=== PATIENT | male | born 1970 | race Caucasian/White ===

== ENCOUNTER 2016-11-09 21:50 | Inpatient (IN) | payer MEDICARE, OTHER ==
[~2016-11-09] VITALS: Ht 185.4 cm; Wt 104.3 kg
[~2016-11-09 21:50] MED LIST: ASPIRIN81 MG PO; COUMADIN5 MG PO; FIORICET TAB1 EA PO; FISH OIL 1,0001 EACH PO; HYDROXYZINE PAM25 MG PO; KEPPRA750 MG PO; LIPITOR TAB 2020 MG PO; NEURONTIN600 MG PO; NORCO 7.5-3251 EACH PO; SENOKOT-S TABL1 EACH PO; VOLTAREN EC 5050 MG PO; XARELTO15 MG PO; XARELTO20 MG PO
[2016-11-10 02:11] LABS: HEMOGLOBIN 15.3 gm/dl (14.0-17.5); RED BLOOD COUNT 4.99 M/UL (4.20-5.50); WHITE BLOOD COUNT 9.7 K/UL (4.5-11.0)
[2016-11-10 02:30] LABS: BUN/CREATININE RATIO 20 (0-10)
[2016-11-10] MEDS ORDERED: REMERON15 MG PO (11:03)
[2016-11-10] MEDS ORDERED: FISH OIL 1,0001 EAC1 PO (11:04)
[2016-11-10] MEDS ORDERED: LIPITOR TAB 2020 MG PO (11:04)
[2016-11-10] MEDS ORDERED: CLARITIN 10MG T10 MG PO (11:06)
[2016-11-10] MEDS ORDERED: ZANAFLEX 4 MG TA4 MG PO (11:07)
[2016-11-10] MEDS ORDERED: FIORICET TAB1 EA PO (11:07)
[2016-11-11 04:17] LABS: HEMOGLOBIN 14.5 gm/dl (14.0-17.5); RED BLOOD COUNT 4.82 M/UL (4.20-5.50)
[2016-11-11 04:20] LABS: WHITE BLOOD COUNT 7.1 K/UL (4.5-11.0)
[2016-11-11 04:48] LABS: BUN/CREATININE RATIO 23 (0-10)
== END 2016-11-12 13:42 | disposition home or self-care (01) | DRG 176 ==
LOC: ER1 21:50 → MED SURG 4 11-10 08:32 → ZEROF 11-10 08:32 → MED SURG 4 11-10 18:40
PROVIDERS: Physician Assistant; ADMIT Internal Medicine Infectious Disease
DX: I26.99 Other pulmonary embolism without acute cor pulmonale (principal); J98.11 Atelectasis; I82.509 Chronic embolism and thrombosis of unspecified deep veins of unspecified lower extremity; D68.51 Activated protein C resistance; F79 Unspecified intellectual disabilities; I49.5 Sick sinus syndrome; F17.210 Nicotine dependence, cigarettes, uncomplicated; M79.604 Pain in right leg; M62.838 Other muscle spasm; I48.0 Paroxysmal atrial fibrillation; G40.909 Epilepsy, unspecified, not intractable, without status epilepticus; I25.10 Atherosclerotic heart disease of native coronary artery without angina pectoris; R07.89 Other chest pain; I10 Essential (primary) hypertension; E78.5 Hyperlipidemia, unspecified; Z91.14 Patient's other noncompliance with medication regimen; Z95.0 Presence of cardiac pacemaker; Z86.79 Personal history of other diseases of the circulatory system; Z79.01 Long term (current) use of anticoagulants; Z88.5 Allergy status to narcotic agent; Z88.6 Allergy status to analgesic agent; Z79.82 Long term (current) use of aspirin; Z79.1 Long term (current) use of non-steroidal anti-inflammatories (NSAID); Z79.02 Long term (current) use of antithrombotics/antiplatelets; Z79.899 Other long term (current) drug therapy
CPT/HCPCS: 36415; 71010; 73564; 80048; 80053; 81001; 82550; 82553; 83874; 84484; 85025; 85610; 85730; 93005; 96372; 99285; G0378; J1650; J7050; Q0177; Q9963

== ENCOUNTER 2016-11-18 19:24 | Emergency (ER) | payer MEDICARE, OTHER ==
[~2016-11-18 19:24] MED LIST changes: +CLARITIN 10MG T10 MG PO; +FISH OIL 1,0001 EAC1 PO; +REMERON15 MG PO; +ZANAFLEX 4 MG TA4 MG PO
[2016-11-18 20:30] LABS: RED BLOOD COUNT 4.54 M/UL (4.20-5.50); WHITE BLOOD COUNT 8.4 K/UL (4.5-11.0)
[2016-11-18 20:59] LABS: BUN/CREATININE RATIO 24 (0-10)
== END 2016-11-18 22:15 | disposition home or self-care (01) ==
LOC: ER1 19:24
PROVIDERS: Specialist/Technologist Athletic Trainer
DX: R07.2 Precordial pain (principal); I10 Essential (primary) hypertension; F17.200 Nicotine dependence, unspecified, uncomplicated; Z79.01 Long term (current) use of anticoagulants; Z79.899 Other long term (current) drug therapy; Z88.8 Allergy status to other drugs, medicaments and biological substances
CPT/HCPCS: 36415; 80053; 82550; 82553; 84484; 85025; 85610; 85730; 93005; 99285

== ENCOUNTER 2016-11-22 21:04 | Observation (INO) | payer MEDICARE, OTHER ==
[~2016-11-22] VITALS: Ht 185.4 cm; Wt 107.3 kg
[2016-11-22 22:53] LABS: HEMOGLOBIN 14.5 gm/dl (14.0-17.5); RED BLOOD COUNT 4.75 M/UL (4.20-5.50); WHITE BLOOD COUNT 8.4 K/UL (4.5-11.0)
[2016-11-22 23:12] LABS: BUN/CREATININE RATIO 16 (0-10)
[2016-11-24] MEDS ORDERED: IMDUR ER TAB 3030 MG PO (12:32)
[2016-11-24] MEDS ORDERED: LOVENOX SY120 MG/0.8 SQ (12:33)
== END 2016-11-24 14:30 | disposition home or self-care (01) ==
LOC: ER1 21:04 → M/S 11-23 00:55 → ZEROF 11-23 00:55 → M/S 11-23 01:59
PROVIDERS: Student in an Organized Health Care Education/Training Program; ADMIT Internal Medicine
DX: R07.89 Other chest pain (principal); I26.99 Other pulmonary embolism without acute cor pulmonale; I82.409 Acute embolism and thrombosis of unspecified deep veins of unspecified lower extremity; I48.0 Paroxysmal atrial fibrillation; I49.5 Sick sinus syndrome; I10 Essential (primary) hypertension; E78.5 Hyperlipidemia, unspecified; G89.29 Other chronic pain; F17.210 Nicotine dependence, cigarettes, uncomplicated; Z91.19 Patient's noncompliance with other medical treatment and regimen; Z82.49 Family history of ischemic heart disease and other diseases of the circulatory system; Z88.8 Allergy status to other drugs, medicaments and biological substances; Z79.01 Long term (current) use of anticoagulants; Z79.82 Long term (current) use of aspirin; Z79.899 Other long term (current) drug therapy; Z90.89 Acquired absence of other organs; Z95.0 Presence of cardiac pacemaker; Z98.890 Other specified postprocedural states
CPT/HCPCS: 36415; 71010; 78452; 80053; 82550; 82553; 83874; 84484; 85025; 85610; 85730; 93005; 93017; 96372; 96374; 96376; 99285; A9502; G0378; J1650; J2270; J2785; Q0177

== ENCOUNTER 2016-11-28 15:42 | Emergency (ER) | payer MEDICARE, OTHER ==
[~2016-11-28 15:42] MED LIST changes: +IMDUR ER TAB 3030 MG PO; +LOVENOX SY120 MG/0.8 SQ
[2016-11-28 16:58] LABS: HEMOGLOBIN 14.6 gm/dl (14.0-17.5); RED BLOOD COUNT 4.82 M/UL (4.20-5.50); WHITE BLOOD COUNT 7.7 K/UL (4.5-11.0)
[2016-11-28 17:13] LABS: BUN/CREATININE RATIO 16 (0-10)
== END 2016-11-29 04:09 | disposition home or self-care (01) ==
LOC: ER1 15:42
PROVIDERS: Emergency Medicine
DX: R07.9 Chest pain, unspecified (principal); I10 Essential (primary) hypertension; I82.401 Acute embolism and thrombosis of unspecified deep veins of right lower extremity; Z86.711 Personal history of pulmonary embolism; Z95.0 Presence of cardiac pacemaker; Z79.01 Long term (current) use of anticoagulants
CPT/HCPCS: 36415; 71020; 80053; 82550; 82553; 83690; 83874; 83880; 84484; 85025; 85379; 85610; 85730; 93005; 93970; 99285; J7050; Q9963

== ENCOUNTER 2016-11-29 04:17 | Emergency (ER) | payer MEDICARE | END 2016-11-29 08:30 | disposition home or self-care (01) | LOC: ER1 04:17 | DX: R07.9 Chest pain, unspecified (principal); I25.10 Atherosclerotic heart disease of native coronary artery without angina pectoris; I10 Essential (primary) hypertension; F17.210 Nicotine dependence, cigarettes, uncomplicated; Z86.711 Personal history of pulmonary embolism; Z86.718 Personal history of other venous thrombosis and embolism; Z88.6 Allergy status to analgesic agent; Z95.0 Presence of cardiac pacemaker | CPT/HCPCS: 36415; 71020; 80053; 82550; 82553; 83690; 83874; 83880; 84484; 85025; 85379; 85610; 85730; 93005; 93970; 99285; J7050; Q9963 ==

== ENCOUNTER 2016-12-06 08:02 | Emergency (ER) | payer MEDICARE, OTHER ==
[2016-12-06 09:13] LABS: HEMOGLOBIN 12.9 gm/dl (14.0-17.5); RED BLOOD COUNT 4.27 M/UL (4.20-5.50)
[2016-12-06 09:33] LABS: BUN/CREATININE RATIO 10 (0-10)
== END 2016-12-06 10:30 | disposition home or self-care (01) ==
LOC: ER1 08:02
PROVIDERS: Emergency Medicine
DX: R07.89 Other chest pain (principal); I10 Essential (primary) hypertension; E78.5 Hyperlipidemia, unspecified; I51.9 Heart disease, unspecified; F17.210 Nicotine dependence, cigarettes, uncomplicated; Z86.711 Personal history of pulmonary embolism; Z79.82 Long term (current) use of aspirin; Z79.01 Long term (current) use of anticoagulants; Z79.899 Other long term (current) drug therapy; Z88.6 Allergy status to analgesic agent
CPT/HCPCS: 36415; 71010; 80053; 82550; 82553; 83874; 84484; 85025; 85610; 85730; 93005; 94664; 96372; 99285; J2930; Q0162

== ENCOUNTER 2016-12-14 10:46 | Emergency (ER) | payer MEDICARE, OTHER ==
[2016-12-14 11:52] LABS: HEMOGLOBIN 15.9 gm/dl (14.0-17.5); RED BLOOD COUNT 5.23 M/UL (4.20-5.50); WHITE BLOOD COUNT 6.9 K/UL (4.5-11.0)
[2016-12-14 12:11] LABS: BUN/CREATININE RATIO 13 (0-10)
[2016-12-15] MEDS ORDERED: ZANAFLEX4 MG PO (10:51)
== END 2016-12-14 13:28 | disposition home or self-care (01) ==
LOC: ER1 10:46
PROVIDERS: Student in an Organized Health Care Education/Training Program
DX: Z53.21 Procedure and treatment not carried out due to patient leaving prior to being seen by health care provider (principal)
CPT/HCPCS: 36415; 71010; 80053; 82550; 82553; 83874; 84484; 85025; 93005; 99285

== ENCOUNTER 2016-12-14 13:31 | Emergency (ER) | payer MEDICARE ==
[2016-12-15] MEDS ORDERED: ZANAFLEX4 MG PO (10:51)
== END 2016-12-14 17:19 | disposition home or self-care (01) ==
LOC: ER1 13:31
DX: R79.1 Abnormal coagulation profile (principal); M79.604 Pain in right leg; Z86.711 Personal history of pulmonary embolism; Z86.718 Personal history of other venous thrombosis and embolism; Z79.01 Long term (current) use of anticoagulants
CPT/HCPCS: 36415; 85610; 85730; 99283

== ENCOUNTER 2016-12-14 20:37 | Observation (INO) | payer MEDICARE, OTHER ==
[~2016-12-14] VITALS: Ht 185.4 cm; Wt 113.4 kg
[2016-12-15 00:37] LABS: HEMOGLOBIN 15.7 gm/dl (14.0-17.5); RED BLOOD COUNT 5.13 M/UL (4.20-5.50)
[2016-12-15 00:43] LABS: WHITE BLOOD COUNT 8.9 K/UL (4.5-11.0)
[2016-12-15] MEDS ORDERED: ZANAFLEX4 MG PO (10:51)
== END 2016-12-15 11:56 | disposition home or self-care (01) ==
LOC: ER1 20:37 → ZEROF 12-15 02:00
PROVIDERS: Emergency Medicine; ADMIT Hospitalist
DX: R79.1 Abnormal coagulation profile (principal); M79.604 Pain in right leg; I48.0 Paroxysmal atrial fibrillation; F99 Mental disorder, not otherwise specified; I49.5 Sick sinus syndrome; G89.29 Other chronic pain; I25.10 Atherosclerotic heart disease of native coronary artery without angina pectoris; I10 Essential (primary) hypertension; F17.210 Nicotine dependence, cigarettes, uncomplicated; Z95.0 Presence of cardiac pacemaker; Z86.69 Personal history of other diseases of the nervous system and sense organs; Z86.711 Personal history of pulmonary embolism; Z76.5 Malingerer [conscious simulation]; Z86.718 Personal history of other venous thrombosis and embolism; Z79.899 Other long term (current) drug therapy; Z90.89 Acquired absence of other organs; Z91.14 Patient's other noncompliance with medication regimen; Z82.49 Family history of ischemic heart disease and other diseases of the circulatory system
CPT/HCPCS: 36415; 85025; 85610; 85730; 94640; 94664; 96374; 99283; 99285; G0378; J2270; J3430

== ENCOUNTER 2016-12-22 01:11 | Emergency (ER) | payer MEDICARE, OTHER ==
[~2016-12-22 01:11] MED LIST changes: +ZANAFLEX4 MG PO
[2016-12-22 01:46] LABS: HEMOGLOBIN 15.2 gm/dl (14.0-17.5); RED BLOOD COUNT 4.95 M/UL (4.20-5.50); WHITE BLOOD COUNT 8.3 K/UL (4.5-11.0)
[2016-12-22 02:10] LABS: BUN/CREATININE RATIO 13 (0-10)
== END 2016-12-22 08:39 | disposition home or self-care (01) ==
LOC: ER1 01:11
PROVIDERS: Physician Assistant
DX: R07.89 Other chest pain (principal); I82.5Z1 Chronic embolism and thrombosis of unspecified deep veins of right distal lower extremity; I25.10 Atherosclerotic heart disease of native coronary artery without angina pectoris; I10 Essential (primary) hypertension; F17.210 Nicotine dependence, cigarettes, uncomplicated
CPT/HCPCS: 36415; 71010; 80053; 82550; 82553; 83874; 84484; 85025; 93005; 99285

== ENCOUNTER 2016-12-31 13:59 | Emergency (ER) | payer MEDICARE, OTHER ==
[2016-12-31 15:19] LABS: HEMOGLOBIN 14.7 gm/dl (14.0-17.5); RED BLOOD COUNT 4.79 M/UL (4.20-5.50); WHITE BLOOD COUNT 8.1 K/UL (4.5-11.0)
[2016-12-31 15:55] LABS: BUN/CREATININE RATIO 11 (0-10)
== END 2016-12-31 19:17 | disposition home or self-care (01) ==
LOC: ER1 13:59
PROVIDERS: Physician Assistant
DX: I82.511 Chronic embolism and thrombosis of right femoral vein (principal); I82.531 Chronic embolism and thrombosis of right popliteal vein; G89.29 Other chronic pain; F17.210 Nicotine dependence, cigarettes, uncomplicated; I25.10 Atherosclerotic heart disease of native coronary artery without angina pectoris; R79.1 Abnormal coagulation profile; Z91.14 Patient's other noncompliance with medication regimen; Z76.5 Malingerer [conscious simulation]; Z95.0 Presence of cardiac pacemaker; Z98.890 Other specified postprocedural states; Z79.01 Long term (current) use of anticoagulants
CPT/HCPCS: 36415; 80053; 85025; 85379; 85610; 85730; 93971; 99284

== ENCOUNTER 2017-01-12 22:02 | Emergency (ER) | payer MEDICARE, OTHER ==
[2017-01-12 22:35] LABS: RED BLOOD COUNT 4.85 M/UL (4.20-5.50)
[2017-01-12 23:02] LABS: BUN/CREATININE RATIO 11 (0-10)
== END 2017-01-13 11:20 | disposition home or self-care (01) ==
LOC: ER1 22:02
PROVIDERS: Emergency Medicine
DX: R07.9 Chest pain, unspecified (principal); R79.1 Abnormal coagulation profile; R06.02 Shortness of breath; I25.10 Atherosclerotic heart disease of native coronary artery without angina pectoris; F17.200 Nicotine dependence, unspecified, uncomplicated; Z86.711 Personal history of pulmonary embolism; Z86.718 Personal history of other venous thrombosis and embolism; Z88.6 Allergy status to analgesic agent
CPT/HCPCS: 36415; 71020; 80053; 82550; 82553; 83874; 84484; 85025; 85379; 85610; 85730; 93005; 96372; 99285; J1650

== ENCOUNTER 2017-01-18 22:17 | Emergency (ER) | payer MEDICARE, OTHER | END 2017-01-19 04:45 | disposition left against medical advice (07) | LOC: ER1 22:17 | DX: Z53.21 Procedure and treatment not carried out due to patient leaving prior to being seen by health care provider (principal) | CPT/HCPCS: 93005 ==

== ENCOUNTER 2017-02-10 17:26 | Emergency (ER) | payer MEDICARE, OTHER ==
[2017-02-10 20:23] LABS: HEMOGLOBIN 15.2 gm/dl (14.0-17.5); RED BLOOD COUNT 5.02 M/UL (4.20-5.50)
[2017-02-10 21:06] LABS: BUN/CREATININE RATIO 8 (0-10)
== END 2017-02-10 23:30 | disposition home or self-care (01) ==
LOC: ER1 17:26
PROVIDERS: Emergency Medicine
DX: R07.89 Other chest pain (principal); Z95.0 Presence of cardiac pacemaker; Z88.6 Allergy status to analgesic agent
CPT/HCPCS: 36415; 71020; 80053; 82550; 82553; 83874; 83880; 84484; 85025; 85379; 85610; 85730; 93005; 99285

== ENCOUNTER 2017-02-25 21:28 | Emergency (ER) | payer MEDICARE, OTHER ==
[2017-02-26 01:07] LABS: HEMOGLOBIN 15.5 gm/dl (14.0-17.5); RED BLOOD COUNT 5.11 M/UL (4.20-5.50); WHITE BLOOD COUNT 14.1 K/UL (4.5-11.0)
[2017-02-26 01:25] LABS: BUN/CREATININE RATIO 12 (0-10)
== END 2017-02-26 01:47 | disposition home or self-care (01) ==
LOC: ER1 21:28
PROVIDERS: Emergency Medicine
DX: M79.604 Pain in right leg (principal); D72.829 Elevated white blood cell count, unspecified; Z86.718 Personal history of other venous thrombosis and embolism; Z86.711 Personal history of pulmonary embolism
CPT/HCPCS: 36415; 80053; 82550; 82553; 83874; 84484; 85025; 85379; 85610; 85730; 99283

== ENCOUNTER 2017-03-03 15:35 | Emergency (ER) | payer MEDICARE, OTHER | END 2017-03-03 18:00 | disposition home or self-care (01) | LOC: ER1 15:35 | DX: I82.511 Chronic embolism and thrombosis of right femoral vein (principal); I82.531 Chronic embolism and thrombosis of right popliteal vein; M79.604 Pain in right leg; Z79.01 Long term (current) use of anticoagulants; Z79.899 Other long term (current) drug therapy; Z88.8 Allergy status to other drugs, medicaments and biological substances | CPT/HCPCS: 73564; 73590; 93971; 99283 ==

== ENCOUNTER 2017-03-07 21:27 | Emergency (ER) | payer MEDICARE, OTHER ==
[2017-03-07 23:52] LABS: HEMOGLOBIN 15.7 gm/dl (14.0-17.5); RED BLOOD COUNT 5.15 M/UL (4.20-5.50); WHITE BLOOD COUNT 7.2 K/UL (4.5-11.0)
[2017-03-08 00:09] LABS: BUN/CREATININE RATIO 11 (0-10)
== END 2017-03-08 00:45 | disposition home or self-care (01) ==
LOC: ER1 21:27
PROVIDERS: Specialist/Technologist Athletic Trainer
DX: R07.2 Precordial pain (principal); D69.6 Thrombocytopenia, unspecified; Z88.6 Allergy status to analgesic agent
CPT/HCPCS: 36415; 36600; 71010; 80053; 82550; 82553; 82803; 83874; 84484; 85025; 93005; 96372; 99285; J1885

== ENCOUNTER 2017-03-09 21:44 | Emergency (ER) | payer MEDICARE, OTHER ==
[2017-03-09 22:52] LABS: HEMOGLOBIN 16.4 gm/dl (14.0-17.5); RED BLOOD COUNT 5.51 M/UL (4.20-5.50); WHITE BLOOD COUNT 8.5 K/UL (4.5-11.0)
[2017-03-09 23:12] LABS: BUN/CREATININE RATIO 12 (0-10)
== END 2017-03-10 06:25 | disposition home or self-care (01) ==
LOC: ER1 21:44
PROVIDERS: Family Medicine
DX: R07.89 Other chest pain (principal); S80.01XA Contusion of right knee, initial encounter; Z88.8 Allergy status to other drugs, medicaments and biological substances; Z88.5 Allergy status to narcotic agent; F17.200 Nicotine dependence, unspecified, uncomplicated; W19.XXXA Unspecified fall, initial encounter
CPT/HCPCS: 36415; 71010; 73564; 80053; 82550; 82553; 83874; 84484; 85025; 93005; 99285

== ENCOUNTER 2020-12-19 02:53 | Emergency (ER) | payer MEDICARE, OTHER ==
[2020-12-19 03:14] LABS: HEMOGLOBIN 13.3 gm/dl (14.0-17.5); RED BLOOD COUNT 4.53 M/UL (4.20-5.50); WHITE BLOOD COUNT 10.2 K/UL (4.5-11.0)
[2020-12-19 03:31] LABS: BUN/CREATININE RATIO 15 (0-10)
[2020-12-19] MEDS ORDERED: MIRALAX 119 GR119 GM GT (07:13)
== END 2020-12-19 08:00 | disposition home or self-care (01) ==
LOC: ER1 02:53
PROVIDERS: Family Medicine
DX: R07.9 Chest pain, unspecified (principal); I11.9 Hypertensive heart disease without heart failure; E11.9 Type 2 diabetes mellitus without complications; F17.210 Nicotine dependence, cigarettes, uncomplicated; Z88.6 Allergy status to analgesic agent; J44.9 Chronic obstructive pulmonary disease, unspecified
CPT/HCPCS: 71045; 80053; 80307; 81001; 82550; 82553; 82962; 83690; 83874; 84484; 85025; 93005; 99285

== ENCOUNTER 2021-06-23 15:45 | Inpatient (IN) | payer MEDICARE, OTHER ==
[~2021-06-23] VITALS: Ht 182.9 cm; Wt 149.7 kg
[~2021-06-23 15:45] MED LIST changes: +MIRALAX 119 GR119 GM GT
[2021-06-23 18:01] LABS: HEMOGLOBIN 13.5 gm/dl (14.0-17.5); RED BLOOD COUNT 4.7 M/UL (4.20-5.50); WHITE BLOOD COUNT 7.6 K/UL (4.5-11.0)
[2021-06-23 18:54] LABS: BUN/CREATININE RATIO 10 (0-10)
[2021-06-24] MEDS ORDERED: FLUOXETINE HCL40 MG PO (11:59)
[2021-06-24] MEDS ORDERED: LEVOTHYROXINE75 MC1 PO (12:00)
[2021-06-24] MEDS ORDERED: PROTONIX 40 MG40 M1 PO (12:00)
[2021-06-24] MEDS ORDERED: PROVENTIL HFA6.7 GM INH (12:03)
[2021-06-24] MEDS ORDERED: ANORO ELLIPTA1 EACH INH (12:04)
[2021-06-24] MEDS ORDERED: INDOCIN 50 MG C50 MG PO (12:06)
[2021-06-25 07:02] LABS: HEMOGLOBIN 12.7 gm/dl (14.0-17.5); RED BLOOD COUNT 4.56 M/UL (4.20-5.50)
[2021-06-25 07:42] LABS: BUN/CREATININE RATIO 12 (0-10)
[2021-06-26] MEDS ORDERED: HYDROXYZINE PAM25 MG PO (11:44)
[2021-06-26] MEDS ORDERED: INDOCIN 50 MG C50 MG PO ×2 (11:44→14:35)
[2021-06-26] MEDS ORDERED: PROTONIX 40 MG40 M1 PO (11:44)
[2021-06-26] MEDS ORDERED: FISH OIL 1,0001 EAC1 PO (11:44)
[2021-06-26] MEDS ORDERED: ANORO ELLIPTA1 EACH INH (11:44)
[2021-06-26] MEDS ORDERED: REMERON15 MG PO (11:44)
[2021-06-26] MEDS ORDERED: FLUOXETINE HCL40 MG PO (11:44)
[2021-06-26] MEDS ORDERED: ISOSORBIDE MONO30 MG PO (11:44)
[2021-06-26] MEDS ORDERED: LEVOTHYROXINE75 MC1 PO (11:44)
[2021-06-26] MEDS ORDERED: ZANAFLEX4 MG PO (11:44)
[2021-06-26] MEDS ORDERED: LIPITOR TAB 2020 MG PO (11:44)
[2021-06-26] MEDS ORDERED: MIRALAX 119 GR119 GM GT (11:44)
[2021-06-26] MEDS ORDERED: KEPPRA750 MG PO (11:44)
[2021-06-26] MEDS ORDERED: PROVENTIL HFA6.7 GM INH (11:44)
[2021-06-26] MEDS ORDERED: JANTOVEN10 MG PO (11:47)
[2021-06-26] MEDS ORDERED: LOVENOX SY120 MG/0.8 SQ (11:47)
[2021-06-26 12:54] LABS: BUN/CREATININE RATIO 10 (0-10)
[2021-06-26] MEDS ORDERED: METOPROLOL TART25 MG PO (14:19)
[2021-06-26] MEDS ORDERED: NEURONTIN600 MG PO (14:35)
[2021-06-26] MEDS ORDERED: GABAPENTIN300 MG PO (14:39)
== END 2021-06-26 17:22 | disposition home or self-care (01) | DRG 683 ==
LOC: ER1 15:45 → M/S 22:00 → CDU 22:00 → M/S 22:30
PROVIDERS: Emergency Medicine; Physician Assistant; ADMIT Internal Medicine
PROC: B24BZZ4 Ultrasonography of Heart with Aorta, Transesophageal (ICD-10-PCS; principal; 2021-06-25)
DX: N17.9 Acute kidney failure, unspecified (principal); G40.802 Other epilepsy, not intractable, without status epilepticus; I82.4Z1 Acute embolism and thrombosis of unspecified deep veins of right distal lower extremity; Z68.41 Body mass index [BMI] 40.0-44.9, adult; Z20.822 Contact with and (suspected) exposure to COVID-19; R53.81 Other malaise; G89.29 Other chronic pain; I49.5 Sick sinus syndrome; R19.7 Diarrhea, unspecified; E66.9 Obesity, unspecified; Z96.651 Presence of right artificial knee joint; I07.1 Rheumatic tricuspid insufficiency; I10 Essential (primary) hypertension; R47.9 Unspecified speech disturbances; K21.9 Gastro-esophageal reflux disease without esophagitis; G31.84 Mild cognitive impairment of uncertain or unknown etiology; F17.210 Nicotine dependence, cigarettes, uncomplicated; E11.9 Type 2 diabetes mellitus without complications; Z95.0 Presence of cardiac pacemaker; Z83.3 Family history of diabetes mellitus; Z79.811 Long term (current) use of aromatase inhibitors; Z91.14 Patient's other noncompliance with medication regimen
CPT/HCPCS: ECHO; 36415; 71045; 78452; 80048; 80053; 82550; 82553; 82570; 82962; 83036; 83874; 84156; 84484; 84550; 85025; 85610; 85652; 86140; 87086; 89050; 93005; 93017; 93306; 94640; 94664; 94760; 99285; A9502; J1650; J2270; J2785; Q0177; U0002

== ENCOUNTER 2021-07-03 12:55 | Observation (INO) | payer MEDICARE, OTHER ==
[~2021-07-03] VITALS: Ht 182.9 cm; Wt 127.0 kg
[~2021-07-03 12:55] MED LIST changes: +ANORO ELLIPTA1 EACH INH; +FLUOXETINE HCL40 MG PO; +GABAPENTIN300 MG PO; +INDOCIN 50 MG C50 MG PO; +ISOSORBIDE MONO30 MG PO; +JANTOVEN10 MG PO; +LEVOTHYROXINE75 MC1 PO; +METOPROLOL TART25 MG PO; +PROTONIX 40 MG40 M1 PO; +PROVENTIL HFA6.7 GM INH
[2021-07-03 13:25] LABS: HEMOGLOBIN 12.8 gm/dl (14.0-17.5); RED BLOOD COUNT 4.51 M/UL (4.20-5.50); WHITE BLOOD COUNT 6.9 K/UL (4.5-11.0)
[2021-07-03 13:52] LABS: BUN/CREATININE RATIO 12 (0-10)
[2021-07-03] MEDS ORDERED: PROAIR DIGIHAL90 MCG INH (17:09)
[2021-07-03] MEDS ORDERED: ATORVASTATIN CA40 MG PO (17:10)
[2021-07-03] MEDS ORDERED: FLUOXETINE HCL40 MG PO (17:11)
[2021-07-03] MEDS ORDERED: GABAPENTIN800 MG PO (17:12)
[2021-07-03] MEDS ORDERED: INDOMETHACIN50 MG PO (17:13)
[2021-07-03] MEDS ORDERED: KEPPRA1000 MG PO (17:14)
[2021-07-03] MEDS ORDERED: REMERON 15 MG T15 MG PO (17:16)
[2021-07-03] MEDS ORDERED: ANORO ELLIPTA1 EACH INH (17:17)
[2021-07-03] MEDS ORDERED: TIZANIDINE HCL4 MG PO (17:17)
[2021-07-03] MEDS ORDERED: BUMETANIDE1 MG PO (17:18)
[2021-07-03] MEDS ORDERED: COLCHICINE0.6 MG PO (17:19)
[2021-07-03] MEDS ORDERED: ALLOPURINOL300 MG PO (17:19)
[2021-07-03] MEDS ORDERED: TRAZODONE HCL150 MG PO (17:19)
[2021-07-03] MEDS ORDERED: FARXIGA5 MG PO (17:20)
[2021-07-03] MEDS ORDERED: XARELTO20 MG PO (17:20)
[2021-07-03] MEDS ORDERED: SPIRONOLACTONE25 MG PO (17:21)
[2021-07-03] MEDS ORDERED: METFORMIN HCL500 MG PO (17:21)
[2021-07-04 06:01] LABS: HEMOGLOBIN 12.5 gm/dl (14.0-17.5); RED BLOOD COUNT 4.43 M/UL (4.20-5.50); WHITE BLOOD COUNT 5.9 K/UL (4.5-11.0)
[2021-07-04 07:59] LABS: BUN/CREATININE RATIO 13 (0-10)
[2021-07-05] MEDS ORDERED: XARELTO15 PACK PO (09:08)
[2021-07-05] MEDS ORDERED: XARELTO20 MG PO (11:43)
[2021-07-05] MEDS ORDERED: XARELTO15 MG PO (11:43)
== END 2021-07-05 14:57 | disposition home or self-care (01) ==
LOC: ER1 12:55 → M/S 16:15 → CDU 16:15 → M/S 21:56
PROVIDERS: Physician Assistant; ADMIT Internal Medicine
PROC: 4A023N8 Measurement of Cardiac Sampling and Pressure, Bilateral, Percutaneous Approach (ICD-10-PCS; principal; 2021-07-04)
PROC: B2151ZZ Fluoroscopy of Left Heart using Low Osmolar Contrast (ICD-10-PCS; 2021-07-04)
DX: R07.89 Other chest pain (principal); I25.10 Atherosclerotic heart disease of native coronary artery without angina pectoris; N17.9 Acute kidney failure, unspecified; I48.0 Paroxysmal atrial fibrillation; D68.51 Activated protein C resistance; I49.5 Sick sinus syndrome; E11.9 Type 2 diabetes mellitus without complications; E03.9 Hypothyroidism, unspecified; G40.909 Epilepsy, unspecified, not intractable, without status epilepticus; F17.210 Nicotine dependence, cigarettes, uncomplicated; E78.5 Hyperlipidemia, unspecified; K21.9 Gastro-esophageal reflux disease without esophagitis; E66.9 Obesity, unspecified; Z68.38 Body mass index [BMI] 38.0-38.9, adult; Z20.822 Contact with and (suspected) exposure to COVID-19; Z95.0 Presence of cardiac pacemaker; Z79.01 Long term (current) use of anticoagulants; Z79.84 Long term (current) use of oral hypoglycemic drugs; Z79.899 Other long term (current) drug therapy; Z86.718 Personal history of other venous thrombosis and embolism; Z91.14 Patient's other noncompliance with medication regimen; Z88.5 Allergy status to narcotic agent; Z88.6 Allergy status to analgesic agent
CPT/HCPCS: 36415; 71045; 80048; 80053; 80061; 82550; 82553; 82962; 83874; 84484; 85025; 85379; 85610; 93005; 94640; 94760; 96372; 99152; 99285; C1769; G0378; J1644; J1650; J2250; J3010; J7040; Q0177; Q9967; U0002

== ENCOUNTER 2021-07-18 10:09 | Emergency (ER) | payer MEDICARE, OTHER ==
[~2021-07-18 10:09] MED LIST changes: +ALLOPURINOL300 MG PO; +ATORVASTATIN CA40 MG PO; +BUMETANIDE1 MG PO; +COLCHICINE0.6 MG PO; +FARXIGA5 MG PO; +GABAPENTIN800 MG PO; +INDOMETHACIN50 MG PO; +KEPPRA1000 MG PO; +METFORMIN HCL500 MG PO; +PROAIR DIGIHAL90 MCG INH; +REMERON 15 MG T15 MG PO; +SPIRONOLACTONE25 MG PO; +TIZANIDINE HCL4 MG PO; +TRAZODONE HCL150 MG PO; +XARELTO15 PACK PO
[2021-07-18 12:54] LABS: HEMOGLOBIN 12.8 gm/dl (14.0-17.5); RED BLOOD COUNT 4.68 M/UL (4.20-5.50); WHITE BLOOD COUNT 7.3 K/UL (4.5-11.0)
[2021-07-18 13:28] LABS: BUN/CREATININE RATIO 11 (0-10)
== END 2021-07-18 15:48 | disposition home or self-care (01) ==
LOC: ER1 10:09
PROVIDERS: Physician Assistant
DX: R07.9 Chest pain, unspecified (principal); K62.5 Hemorrhage of anus and rectum; R06.02 Shortness of breath; E11.9 Type 2 diabetes mellitus without complications; D68.51 Activated protein C resistance; F17.210 Nicotine dependence, cigarettes, uncomplicated
CPT/HCPCS: 71045; 80053; 81001; 82550; 82553; 83874; 84484; 85025; 85610; 93005; 99285

== ENCOUNTER 2021-09-01 08:18 | Emergency (ER) | payer MEDICARE, OTHER ==
[2021-09-01 09:58] LABS: RED BLOOD COUNT 4.62 M/UL (4.20-5.50); WHITE BLOOD COUNT 8.5 K/UL (4.5-11.0)
[2021-09-01 10:32] LABS: BUN/CREATININE RATIO 12 (0-10)
== END 2021-09-01 14:33 | disposition home or self-care (01) ==
LOC: ER1 08:18
PROVIDERS: Family Medicine
DX: R07.9 Chest pain, unspecified (principal); F17.210 Nicotine dependence, cigarettes, uncomplicated; D68.51 Activated protein C resistance; I48.91 Unspecified atrial fibrillation; I82.409 Acute embolism and thrombosis of unspecified deep veins of unspecified lower extremity; G40.909 Epilepsy, unspecified, not intractable, without status epilepticus
CPT/HCPCS: 71045; 80053; 82550; 82553; 83874; 84484; 85025; 85379; 85610; 93005; 99285; Q9967

== ENCOUNTER 2021-09-02 18:53 | Emergency (ER) | payer MEDICARE, OTHER | END 2021-09-02 20:51 | disposition home or self-care (01) | LOC: ER1 18:53 | DX: S80.11XA Contusion of right lower leg, initial encounter (principal); Z23 Encounter for immunization; I25.10 Atherosclerotic heart disease of native coronary artery without angina pectoris; W20.8XXA Other cause of strike by thrown, projected or falling object, initial encounter | CPT/HCPCS: 73590; 90714; 99283 ==

== ENCOUNTER 2021-10-29 18:15 | Emergency (ER) | payer MEDICARE, OTHER ==
[2021-10-29 21:17] LABS: HEMOGLOBIN 13.6 gm/dl (14.0-17.5); RED BLOOD COUNT 4.94 M/UL (4.20-5.50); WHITE BLOOD COUNT 8.2 K/UL (4.5-11.0)
[2021-10-29 21:37] LABS: BUN/CREATININE RATIO 19 (0-10)
== END 2021-10-29 22:40 | disposition home or self-care (01) ==
LOC: ER1 18:15
PROVIDERS: Physician Assistant
DX: R19.7 Diarrhea, unspecified (principal); R10.9 Unspecified abdominal pain; R10.819 Abdominal tenderness, unspecified site; I48.91 Unspecified atrial fibrillation; E11.9 Type 2 diabetes mellitus without complications; E78.5 Hyperlipidemia, unspecified; Z95.0 Presence of cardiac pacemaker; F17.200 Nicotine dependence, unspecified, uncomplicated; Z88.8 Allergy status to other drugs, medicaments and biological substances
CPT/HCPCS: 80053; 81001; 83690; 85025; 99284

== ENCOUNTER 2021-11-01 13:58 | Emergency (ER) | payer MEDICARE, OTHER ==
[2021-11-01 15:51] LABS: HEMOGLOBIN 14.2 gm/dl (14.0-17.5); RED BLOOD COUNT 5.11 M/UL (4.20-5.50)
[2021-11-01 15:54] LABS: WHITE BLOOD COUNT 10.3 K/UL (4.5-11.0)
[2021-11-01 16:03] LABS: BUN/CREATININE RATIO 13 (0-10)
[2021-11-01] MEDS ORDERED: ANTIVERT 12.512.5 MG PO (21:00)
== END 2021-11-01 21:30 | disposition home or self-care (01) ==
LOC: ER1 13:58
PROVIDERS: Family Medicine
DX: R07.9 Chest pain, unspecified (principal); R42 Dizziness and giddiness; R51.9 Headache, unspecified; Z20.822 Contact with and (suspected) exposure to COVID-19; J44.9 Chronic obstructive pulmonary disease, unspecified; F17.210 Nicotine dependence, cigarettes, uncomplicated; Z88.6 Allergy status to analgesic agent; W19.XXXA Unspecified fall, initial encounter
CPT/HCPCS: 70450; 71045; 80048; 82550; 82553; 83874; 84484; 85025; 93005; 99285; U0002

== ENCOUNTER 2021-11-15 11:37 | Emergency (ER) | payer MEDICARE, OTHER ==
[~2021-11-15 11:37] MED LIST changes: +ANTIVERT 12.512.5 MG PO
[2021-11-15 12:23] LABS: HEMOGLOBIN 15.3 gm/dl (14.0-17.5); RED BLOOD COUNT 5.3 M/UL (4.20-5.50); WHITE BLOOD COUNT 11.2 K/UL (4.5-11.0)
[2021-11-15 12:44] LABS: BUN/CREATININE RATIO 11 (0-10)
== END 2021-11-15 16:37 | disposition home or self-care (01) ==
LOC: ER1 11:37
PROVIDERS: Physician Assistant
DX: R07.89 Other chest pain (principal); I25.10 Atherosclerotic heart disease of native coronary artery without angina pectoris; E11.9 Type 2 diabetes mellitus without complications; F17.210 Nicotine dependence, cigarettes, uncomplicated; J44.9 Chronic obstructive pulmonary disease, unspecified; Z95.5 Presence of coronary angioplasty implant and graft; Z79.84 Long term (current) use of oral hypoglycemic drugs; Z95.0 Presence of cardiac pacemaker; Z88.5 Allergy status to narcotic agent; Z88.6 Allergy status to analgesic agent
CPT/HCPCS: 71045; 80053; 82550; 82553; 84484; 85025; 93005; 99285

== ENCOUNTER 2021-12-18 08:44 | Emergency (ER) | payer MEDICARE, OTHER ==
[2021-12-18 09:58] LABS: HEMOGLOBIN 14.1 gm/dl (14.0-17.5); RED BLOOD COUNT 4.87 M/UL (4.20-5.50); WHITE BLOOD COUNT 11.4 K/UL (4.5-11.0)
[2021-12-18 10:22] LABS: BUN/CREATININE RATIO 13 (0-10)
== END 2021-12-18 13:10 | disposition home or self-care (01) ==
LOC: ER1 08:44
PROVIDERS: Emergency Medicine
DX: J44.1 Chronic obstructive pulmonary disease with (acute) exacerbation (principal); R41.0 Disorientation, unspecified; F17.200 Nicotine dependence, unspecified, uncomplicated; Z95.0 Presence of cardiac pacemaker; Z86.73 Personal history of transient ischemic attack (TIA), and cerebral infarction without residual deficits
CPT/HCPCS: 70450; 71045; 80053; 82550; 82553; 83690; 84484; 85025; 93005; 94664; 94760; 99285

== ENCOUNTER 2022-01-20 17:07 | Emergency (ER) | payer MEDICARE, OTHER ==
[2022-01-20 18:35] LABS: HEMOGLOBIN 14.4 gm/dl (14.0-17.5); RED BLOOD COUNT 4.93 M/UL (4.20-5.50); WHITE BLOOD COUNT 11.1 K/UL (4.5-11.0)
[2022-01-20 19:22] LABS: BUN/CREATININE RATIO 13 (0-10)
== END 2022-01-20 21:33 | disposition home or self-care (01) ==
LOC: ER1 17:07
PROVIDERS: Emergency Medicine
DX: R07.9 Chest pain, unspecified (principal); E11.9 Type 2 diabetes mellitus without complications; I11.9 Hypertensive heart disease without heart failure; I48.91 Unspecified atrial fibrillation; F17.200 Nicotine dependence, unspecified, uncomplicated; Z86.718 Personal history of other venous thrombosis and embolism; Z95.0 Presence of cardiac pacemaker; Z79.899 Other long term (current) drug therapy
CPT/HCPCS: 71045; 80053; 82550; 82553; 84484; 85025; 93005; 99285

== ENCOUNTER 2022-01-26 10:45 | Emergency (ER) | payer MEDICARE, OTHER ==
[2022-01-26 11:25] LABS: HEMOGLOBIN 14.8 gm/dl (14.0-17.5); RED BLOOD COUNT 5.03 M/UL (4.20-5.50); WHITE BLOOD COUNT 7.5 K/UL (4.5-11.0)
[2022-01-26 12:07] LABS: BUN/CREATININE RATIO 13 (0-10)
== END 2022-01-26 14:10 | disposition home or self-care (01) ==
LOC: ER1 10:45
PROVIDERS: Nurse Practitioner
DX: R07.89 Other chest pain (principal); I10 Essential (primary) hypertension; E11.9 Type 2 diabetes mellitus without complications; Z79.82 Long term (current) use of aspirin
CPT/HCPCS: 71045; 80053; 81001; 82550; 82553; 83735; 84100; 84439; 84443; 84484; 85025; 93005; 99285

== ENCOUNTER 2022-02-06 18:34 | Emergency (ER) | payer MEDICARE, OTHER ==
[2022-02-06 19:54] LABS: HEMOGLOBIN 12.8 gm/dl (14.0-17.5); RED BLOOD COUNT 4.48 M/UL (4.20-5.50); WHITE BLOOD COUNT 7.1 K/UL (4.5-11.0)
[2022-02-06 20:16] LABS: BUN/CREATININE RATIO 10 (0-10)
== END 2022-02-07 00:17 | disposition home or self-care (01) ==
LOC: ER1 18:34
PROVIDERS: Physician Assistant
DX: R07.9 Chest pain, unspecified (principal); I48.91 Unspecified atrial fibrillation; E11.9 Type 2 diabetes mellitus without complications; Z79.4 Long term (current) use of insulin; E78.5 Hyperlipidemia, unspecified; I10 Essential (primary) hypertension; Z86.718 Personal history of other venous thrombosis and embolism; E66.9 Obesity, unspecified; J44.9 Chronic obstructive pulmonary disease, unspecified; E07.9 Disorder of thyroid, unspecified; G40.909 Epilepsy, unspecified, not intractable, without status epilepticus; Z95.0 Presence of cardiac pacemaker; Z79.01 Long term (current) use of anticoagulants; Z79.899 Other long term (current) drug therapy; Z51.81 Encounter for therapeutic drug level monitoring; Z88.6 Allergy status to analgesic agent
CPT/HCPCS: 71045; 80053; 82550; 82553; 83880; 84484; 85025; 85379; 85610; 85730; 93005; 99285

== ENCOUNTER 2022-03-09 02:17 | Observation (INO) | payer MEDICARE, OTHER ==
[~2022-03-09] VITALS: Ht 182.9 cm; Wt 127.0 kg
[~2022-03-09 02:17] MED LIST changes: +METFORMIN HCL500 M2 PO; -METFORMIN HCL500 MG PO; -TRAZODONE HCL150 MG PO; +TRAZODONE HCL50 MG PO
[2022-03-09 03:00] LABS: HEMOGLOBIN 14.3 gm/dl (14.0-17.5); RED BLOOD COUNT 4.9 M/UL (4.20-5.50); WHITE BLOOD COUNT 8.3 K/UL (4.5-11.0)
[2022-03-09 03:23] LABS: BUN/CREATININE RATIO 12 (0-10)
--- NOTE | 2022-03-09 06:28 | NUR ---
03/09/22 0618 RECEIVED FROM ED VIA WC. ALERT AND COOPERATIVE. HR 70 RR 18 BP 137/86, 20 GA IV RIGHT AC SALINE LOCK. REPORT GIVEN TO MIRI BRADY RN
[2022-03-09] MEDS ORDERED: DIVALPROEX SOD500 M1 PO (09:54)
[2022-03-09] MEDS ORDERED: METOPROLOL SUCC25 MG PO (09:56)
[2022-03-09] MEDS ORDERED: XARELTO20 MG PO (09:58)
[2022-03-10 07:14] LABS: BUN/CREATININE RATIO 12 (0-10)
[2022-03-10] MEDS ORDERED: ASPIRIN EC81 MG PO (09:36)
== END 2022-03-10 13:40 | disposition home or self-care (01) ==
LOC: ER1 02:17 → PROG CARE 04:55 → MED SURG 4 04:55 → CDU 04:55 → PROG CARE 06:30 → MED SURG 4 21:30
PROVIDERS: Physician Assistant; ADMIT Internal Medicine
DX: R42 Dizziness and giddiness (principal); R53.1 Weakness; E11.9 Type 2 diabetes mellitus without complications; I48.20 Chronic atrial fibrillation, unspecified; G40.909 Epilepsy, unspecified, not intractable, without status epilepticus; I49.5 Sick sinus syndrome; D68.51 Activated protein C resistance; E86.0 Dehydration; I25.10 Atherosclerotic heart disease of native coronary artery without angina pectoris; E03.9 Hypothyroidism, unspecified; I48.91 Unspecified atrial fibrillation; F17.210 Nicotine dependence, cigarettes, uncomplicated; Z79.01 Long term (current) use of anticoagulants; Z79.84 Long term (current) use of oral hypoglycemic drugs; Z79.899 Other long term (current) drug therapy; Z86.718 Personal history of other venous thrombosis and embolism; Z88.5 Allergy status to narcotic agent; Z88.6 Allergy status to analgesic agent; Z95.0 Presence of cardiac pacemaker
CPT/HCPCS: 36415; 70496; 70498; 71045; 80048; 80053; 80061; 80307; 81001; 82140; 82550; 82553; 82607; 82746; 82962; 83036; 83735; 83880; 84100; 84439; 84443; 84484; 85025; 85610; 85730; 87086; 92610; 93005; 96374; 97161; 97165; 99285; G0378; J2310; Q9967

== ENCOUNTER 2022-03-15 13:33 | Emergency (ER) | payer MEDICARE, OTHER ==
[~2022-03-15 13:33] MED LIST changes: +ASPIRIN EC81 MG PO; +DIVALPROEX SOD500 M1 PO; +METOPROLOL SUCC25 MG PO
[2022-03-15 14:43] LABS: HEMOGLOBIN 15.2 gm/dl (14.0-17.5); RED BLOOD COUNT 5.15 M/UL (4.20-5.50); WHITE BLOOD COUNT 7.9 K/UL (4.5-11.0)
[2022-03-15 15:10] LABS: BUN/CREATININE RATIO 19 (0-10)
== END 2022-03-15 18:08 | disposition home or self-care (01) ==
LOC: ER1 13:33
PROVIDERS: Nurse Practitioner
DX: R07.89 Other chest pain (principal); J44.9 Chronic obstructive pulmonary disease, unspecified; E78.5 Hyperlipidemia, unspecified; I10 Essential (primary) hypertension; F17.210 Nicotine dependence, cigarettes, uncomplicated; I25.2 Old myocardial infarction
CPT/HCPCS: 71045; 80053; 82550; 82553; 84484; 85025; 93005; 99285

== ENCOUNTER 2022-03-24 12:45 | Emergency (ER) | payer MEDICARE, OTHER ==
[2022-03-24 17:34] LABS: HEMOGLOBIN 14.2 gm/dl (14.0-17.5); RED BLOOD COUNT 4.78 M/UL (4.20-5.50); WHITE BLOOD COUNT 10.5 K/UL (4.5-11.0)
[2022-03-24 18:17] LABS: BUN/CREATININE RATIO 15 (0-10)
== END 2022-03-24 19:35 | disposition home or self-care (01) ==
LOC: ER1 12:45
PROVIDERS: Student in an Organized Health Care Education/Training Program
DX: R20.2 Paresthesia of skin (principal); E11.9 Type 2 diabetes mellitus without complications; I11.9 Hypertensive heart disease without heart failure; E78.5 Hyperlipidemia, unspecified; F17.290 Nicotine dependence, other tobacco product, uncomplicated; Z88.8 Allergy status to other drugs, medicaments and biological substances
CPT/HCPCS: 70450; 80053; 82550; 82553; 84484; 85025; 99284

== ENCOUNTER 2022-04-10 22:31 | Emergency (ER) | payer MEDICARE, OTHER ==
[2022-04-11 00:56] LABS: HEMOGLOBIN 13.1 gm/dl (14.0-17.5); RED BLOOD COUNT 4.45 M/UL (4.20-5.50); WHITE BLOOD COUNT 4.8 K/UL (4.5-11.0)
[2022-04-11 01:20] LABS: BUN/CREATININE RATIO 10 (0-10)
== END 2022-04-11 02:34 | disposition home or self-care (01) ==
LOC: ER1 22:31
PROVIDERS: Physician Assistant
DX: U07.1 COVID-19 (principal); R11.2 Nausea with vomiting, unspecified; I11.9 Hypertensive heart disease without heart failure; E10.9 Type 1 diabetes mellitus without complications; J44.9 Chronic obstructive pulmonary disease, unspecified; F17.210 Nicotine dependence, cigarettes, uncomplicated; Z88.6 Allergy status to analgesic agent
CPT/HCPCS: 0240U; 71045; 80053; 82550; 82553; 83880; 84484; 85025; 96374; 99284; J2405

== ENCOUNTER 2022-04-24 09:28 | Emergency (ER) | payer MEDICARE, OTHER ==
[2022-04-24 09:55] LABS: HEMOGLOBIN 14.3 gm/dl (14.0-17.5); RED BLOOD COUNT 4.79 M/UL (4.20-5.50); WHITE BLOOD COUNT 7.6 K/UL (4.5-11.0)
[2022-04-24 10:35] LABS: BUN/CREATININE RATIO 19 (0-10)
== END 2022-04-24 13:40 | disposition home or self-care (01) ==
LOC: ER1 09:28
DX: R07.9 Chest pain, unspecified (principal); R19.7 Diarrhea, unspecified; I25.2 Old myocardial infarction; F17.210 Nicotine dependence, cigarettes, uncomplicated; Z20.822 Contact with and (suspected) exposure to COVID-19; E11.9 Type 2 diabetes mellitus without complications; I10 Essential (primary) hypertension; J44.9 Chronic obstructive pulmonary disease, unspecified; Z95.0 Presence of cardiac pacemaker; Z88.6 Allergy status to analgesic agent
CPT/HCPCS: 0240U; 71045; 80053; 82550; 82553; 84484; 85025; 93005; 99285

== ENCOUNTER 2022-05-28 09:58 | Emergency (ER) | payer MEDICARE, OTHER ==
[2022-05-28 10:44] LABS: HEMOGLOBIN 13.3 gm/dl (14.0-17.5); RED BLOOD COUNT 4.43 M/UL (4.20-5.50); WHITE BLOOD COUNT 8.8 K/UL (4.5-11.0)
[2022-05-28 11:13] LABS: BUN/CREATININE RATIO 11 (0-10)
== END 2022-05-28 14:30 | disposition home or self-care (01) ==
LOC: ER1 09:58
PROVIDERS: Family Medicine
DX: R07.9 Chest pain, unspecified (principal); F17.200 Nicotine dependence, unspecified, uncomplicated; E11.9 Type 2 diabetes mellitus without complications; Z88.6 Allergy status to analgesic agent; Z95.0 Presence of cardiac pacemaker
CPT/HCPCS: 71045; 80053; 82550; 82553; 84484; 85025; 93005; 99285